=== PATIENT | female | born 1980 | race Caucasian/White ===

== ENCOUNTER 2025-04-17 16:17 | Emergency (ER) | payer BC ==
[~2025-04-17] VITALS: Ht 170.2 cm; Wt 70.3 kg
[2025-04-17] MEDS ORDERED: SODIUM CHLORIDE FLUSH 10 ML SYR IV PRN (16:45)
[2025-04-17 16:49] LABS: BASOPHILS # (AUTO) 0.1 (0.0-0.1); BASOPHILS % 0.4 % (0.0-1.0); EOSINOPHILS # (AUTO) 0.2 (0.0-0.4); EOSINOPHILS % 2.1 % (0.0-6.0); HEMATOCRIT 43.7 % (34.2-44.1); HEMOGLOBIN 15.1 g/dL (12.0-16.0); LYMPHOCYTES # (AUTO) 1.5 (1.0-3.2); MEAN CORPUSCULAR HGB CONC 34.6 g/dL (31-35); MEAN CORPUSCULAR VOLUME 89.7 fL (81-99); MONOCYTES # (AUTO) 0.6 (0.2-0.8); MONOCYTES % 5.3 % (4.4-11.3); NEUTROPHILS # (AUTO) 9.2 (2.1-6.9); NEUTROPHILS % 78.9 % (38.7-80.0); PLATELET COUNT 230 x10e3/uL (140-360); RED BLOOD COUNT 4.87 x10e6/uL (3.6-5.1); RED CELL DISTRIBUTION WIDTH 13.2 % (11.7-14.4); WHITE BLOOD COUNT 11.65 x10e3/uL (4.8-10.8)
[2025-04-17 17:19] LABS: ALBUMIN 4.1 g/dL (3.5-5.0); ALBUMIN/GLOBULIN RATIO 1.4 (0.8-2.0); ANION GAP 13.8 mmol/L (8-16); BILIRUBIN,TOTAL 0.3 mg/dL (0.2-1.2); CALCIUM 9.3 mg/dL (8.4-10.2); CREATININE, SERUM 0.82 mg/dL (0.57-1.11); POTASSIUM 3.8 mmol/L (3.5-5.1)
[2025-04-17 17:24] LABS: TROPONIN I 0.01 ng/mL (0-0.300)
[2025-04-17 18:42] VITALS: PULSE 74; RESP 16; TEMP 98.7; O2SAT 100
== END 2025-04-17 18:40 | disposition home or self-care (01) ==
LOC: ER 18:18
DX: R06.00 Dyspnea, unspecified (principal); R20.2 Paresthesia of skin; M32.9 Systemic lupus erythematosus, unspecified; F17.210 Nicotine dependence, cigarettes, uncomplicated
CPT/HCPCS: 36415; 71045; 80053; 84484; 85025; 85379; 93005; 94760; 99284